=== PATIENT | male | born 1965 | race African-American/Black ===

== ENCOUNTER 2021-10-06 12:24 | Emergency (ER) | payer MEDICARE, OTHER ==
[~2021-10-06] VITALS: Ht 172.7 cm; Wt 92.0 kg
[2021-10-06 12:26] VITALS: BP 146/94
[2021-10-06] MEDS ORDERED: ACETAMINOPHEN 325MG TABLET PO ONE (12:45)
[2021-10-06] MEDS ORDERED: TOPUD PO (14:06)
== END 2021-10-06 14:33 | disposition home or self-care (01) ==
LOC: ER 12:24
DX: M54.50 Low back pain, unspecified (principal); M25.552 Pain in left hip; E11.9 Type 2 diabetes mellitus without complications; I10 Essential (primary) hypertension; V43.52XA Car driver injured in collision with other type car in traffic accident, initial encounter; Y93.H3 Activity, building and construction; Y92.410 Unspecified street and highway as the place of occurrence of the external cause
CPT/HCPCS: 72100; 73502; 99284